=== PATIENT | male | born 1955 | race African-American/Black ===

== ENCOUNTER 2016-12-15 17:02 | Inpatient (IN) | payer MEDICAID ==
[~2016-12-15] VITALS: Ht 177.8 cm; Wt 73.5 kg
[2016-12-15 17:55] LABS: HEMOGLOBIN 14.5 g/dL (13.7-18.0)
[2016-12-15] MEDS ORDERED: METOPROLOL 1 MG/ML, 5ML ONE ×2 (17:58→18:32)
[2016-12-15] MEDS ORDERED: MORPHINE SULFATE 4 MG/ML, 1ML ONE ×2 (17:58→19:08)
[2016-12-15] MEDS ORDERED: ONDANSETRON 2MG/ML, 2ML ONE (17:59)
[2016-12-15] MEDS ORDERED: ASPIRIN 81 MG TABLET CHEW ONE (17:59)
[2016-12-15] MEDS ORDERED: SODIUM CHLORIDE FLUSH 10ML SYR IVF ONE (18:00)
[2016-12-15] MEDS ORDERED: ASPIRIN 81 MG TABLET CHEW PO ONE (18:00)
[2016-12-15] MEDS ORDERED: ONDANSETRON 2MG/ML, 2ML IVPush ONE (18:00)
[2016-12-15 18:04] LABS: ASPARTATE AMINO TRANSFERASE 53 U/L (15-37); BLOOD UREA NITROGEN 21 mg/dL (7-18)
[2016-12-15] MEDS: METOPROLOL 1 MG/ML, 5ML IVPush PRN ×2 (18:04→18:35)
[2016-12-15] MEDS: MORPHINE SULFATE 4 MG/ML, 1ML IVPush PRN ×2 (18:05→19:09)
[2016-12-15 18:27] LABS: IS PT STATUS REG ER OR PRE ER? YES
[2016-12-15] MEDS ORDERED: SODIUM CHLORIDE 0.9% 1,000ML IVBOLUS ONE (18:30)
[2016-12-15] MEDS ORDERED: POTASSIUM CHLORIDE 20 MEQ TAB.ER.PRT PO ONE (18:30)
[2016-12-15] MEDS ORDERED: POTASSIUM CHLORIDE 20 MEQ TAB.ER.PRT ONE (18:32)
[2016-12-15 19:20] LABS: DAU SCREEN DISCLAIMER
[2016-12-15] MEDS ORDERED: PROPYLTHIOURACIL 50 MG TABLET PO ONE (19:30)
[2016-12-15] MEDS ORDERED: HYDROCORTISONE 250 MG/2 ML IVPush ONE (19:30)
[2016-12-15] MEDS ORDERED: HYDROmorphone 1 MG/ML, 1ML IV ONE (19:30)
[2016-12-15] MEDS ORDERED: PROPRANOLOL 60 MG TABLET PO ONE (19:30)
[2016-12-15] MEDS ORDERED: MAGNESIUM SULFATE PMX 2GM/50ML 50 ML IV ONE (19:30)
[2016-12-15] MEDS ORDERED: TRAZODONE 50MG TABLET PO PRN (20:30)
[2016-12-15] MEDS ORDERED: POLYETHYLENE GLYCOL 17 GM PACKET PO PRN (20:30)
[2016-12-15] MEDS ORDERED: BISACODYL 10 MG SUPP PR PRN (20:30)
[2016-12-15] MEDS ORDERED: LABETALOL 5MG/ML, 20ML IV PRN (20:30)
[2016-12-15] MEDS ORDERED: DOCUSATE 100 MG CAPSULE PO PRN (20:30)
[2016-12-15] MEDS ORDERED: ACETAMINOPHEN 325 MG TABLET PO PRN (20:30)
[2016-12-15] MEDS ORDERED: ONDANSETRON ODT 4 MG PO PRN (20:30)
[2016-12-15 21:04] LABS: IS PT STATUS REG ER OR PRE ER? YES
[2016-12-15] MEDS ORDERED: ENOXAPARIN 40 MG/0.4 ML ONE (21:27)
[2016-12-15] MEDS: ENOXAPARIN 40 MG/0.4 ML SQ SCH (21:46)
[2016-12-15] MEDS: ATORVASTATIN 80 MG TABLET PO SCH (21:46)
[2016-12-15] MEDS ORDERED: NS + 20MEQ KCL 1,000 ML IV ONE (21:47)
[2016-12-15] MEDS: NS + 20MEQ KCL 1,000 ML IV SCH (21:50)
[2016-12-16 00:30] VITALS: BP 129/79
[2016-12-16] MEDS: POTASSIUM IODIDE ORAL.SOLN 1 GM/ML PO SCH ×5 (00:38→20:56)
[2016-12-16] MEDS: PROPYLTHIOURACIL 50 MG TABLET PO SCH ×7 (00:41→23:09)
[2016-12-16] MEDS: PROPRANOLOL 60 MG TABLET PO SCH ×4 (03:13→20:56)
[2016-12-16] MEDS: NS + 20MEQ KCL 1,000 ML IV SCH (03:15)
[2016-12-16 03:21] LABS: ASPARTATE AMINO TRANSFERASE 227 U/L (15-37); BLOOD UREA NITROGEN 15 mg/dL (7-18)
[2016-12-16 03:26] LABS: IS PT STATUS REG ER OR PRE ER? NO
[2016-12-16 04:43] LABS: HIV 1&2 ANTIBODY SCREEN Nonreactive (Nonreactive); HIV-1 p24 ANTIGEN Nonreactive (Nonreactive)
[2016-12-16 05:00] VITALS: BP 132/88
[2016-12-16] MEDS: SODIUM CHLORIDE 0.9% 1,000 ML IV SCH ×2 (05:40→18:41)
[2016-12-16] MEDS: ASPIRIN 325 MG TABLET EC PO SCH (06:09)
[2016-12-16] MEDS ORDERED: POTASSIUM CHLORIDE 20 MEQ, MAGNESIUM SULFATE 1 GM, THIAMINE 100 MG, FOLIC ACID 1 MG, MV... IV SCH (07:30)
[2016-12-16] MEDS ORDERED: THIAMINE 100 MG in SODIUM CHLORIDE 0.9% 50 ML IV ONE (08:00)
[2016-12-16] MEDS ORDERED: LORazepam 2 MG/ML, 1ML IVPush PRN (08:00)
[2016-12-16] MEDS: CHLORDIAZEPOXIDE 25 MG CAPSULE PO SCH ×3 (08:37→20:56)
[2016-12-16 09:53] LABS: HEPATITIS C VIRUS ANTIBODY Nonreactive (Nonreactive)
[2016-12-16] MEDS: ENOXAPARIN 40 MG/0.4 ML SQ SCH (20:55)
[2016-12-16] MEDS: ATORVASTATIN 80 MG TABLET PO SCH (20:56)
[2016-12-16] MEDS ORDERED: LABETALOL 5MG/ML, 20ML IV PRN (21:48)
[2016-12-16] MEDS ORDERED: FUROSEMIDE 20 MG/2 ML ONE (22:10)
[2016-12-16] MEDS ORDERED: FUROSEMIDE 20 MG/2 ML IV ONE (22:30)
[2016-12-17 00:15] LABS: IS PT STATUS REG ER OR PRE ER? NO
[2016-12-17] MEDS: SODIUM CHLORIDE 0.9% 1,000 ML IV SCH (00:40)
[2016-12-17] MEDS: PROPRANOLOL 60 MG TABLET PO SCH ×2 (03:06→08:57)
[2016-12-17] MEDS: PROPYLTHIOURACIL 50 MG TABLET PO SCH ×2 (03:07→06:25)
[2016-12-17 04:00] VITALS: BP 156/103
[2016-12-17] MEDS: POTASSIUM IODIDE ORAL.SOLN 1 GM/ML PO SCH (06:23)
[2016-12-17] MEDS: ASPIRIN 325 MG TABLET EC PO SCH (06:23)
[2016-12-17] MEDS: CHLORDIAZEPOXIDE 25 MG CAPSULE PO SCH (08:57)
[2016-12-17] MEDS ORDERED: FLUTICASONE NASAL SPRAY 16GM NAS SCH (09:00)
== END 2016-12-17 09:25 | disposition left against medical advice (07) | DRG 643 ==
LOC: ED 17:42 → EDIP 20:08 → CCU 23:57
PROVIDERS: ADMIT Internal Medicine; ATTEND Internal Medicine
DX: E05.01 Thyrotoxicosis with diffuse goiter with thyrotoxic crisis or storm (principal); J96.90 Respiratory failure, unspecified, unspecified whether with hypoxia or hypercapnia; I48.92 Unspecified atrial flutter; E87.2 Acidosis; J81.1 Chronic pulmonary edema; I24.8 Other forms of acute ischemic heart disease; I10 Essential (primary) hypertension; E87.6 Hypokalemia; E83.42 Hypomagnesemia; F10.220 Alcohol dependence with intoxication, uncomplicated; F11.10 Opioid abuse, uncomplicated; J44.9 Chronic obstructive pulmonary disease, unspecified; M19.90 Unspecified osteoarthritis, unspecified site; K58.9 Irritable bowel syndrome, unspecified; G89.29 Other chronic pain; M54.9 Dorsalgia, unspecified; F17.290 Nicotine dependence, other tobacco product, uncomplicated; I25.2 Old myocardial infarction; Z82.49 Family history of ischemic heart disease and other diseases of the circulatory system; Z91.19 Patient's noncompliance with other medical treatment and regimen; Z90.49 Acquired absence of other specified parts of digestive tract; Z88.0 Allergy status to penicillin; Z84.89 Family history of other specified conditions
CPT/HCPCS: 36415; 71010; 76536; 80053; 80074; 80307; 83605; 83735; 83880; 84100; 84132; 84436; 84439; 84443; 84481; 84484; 85025; 85379; 85610; 85730; 86703; 87081; 87899; 93005; 96361; 96365; 96375; J1650; J1720; J2405; J3411; J3475; J3480; G0435; J1940; J2060; J7030

== ENCOUNTER 2017-05-28 23:30 | Inpatient (IN) | payer MEDICAID ==
[~2017-05-28] VITALS: Ht 177.8 cm; Wt 79.7 kg
[2017-05-28] MEDS: NITROGLYCERIN SINGLE TAB 0.4 MG SL PRN ×3 (23:38→23:50)
[2017-05-28] MEDS ORDERED: [UNRECOGNIZED DRUG - REMARK] (23:40)
[2017-05-28] MEDS ORDERED: ASPIRIN 81 MG TABLET CHEW ONE (23:53)
[2017-05-28 23:54] LABS: HEMATOCRIT 37.9 % (39.2-51.8); WHITE BLOOD COUNT 6.1 x10^3/uL (3.4-10)
[2017-05-28] MEDS ORDERED: MORPHINE SULFATE 4 MG/ML, 1ML ONE (23:55)
[2017-05-28] MEDS ORDERED: ONDANSETRON 2MG/ML, 2ML ONE (23:55)
[2017-05-29] MEDS ORDERED: ASPIRIN 81 MG TABLET CHEW PO ONE
[2017-05-29] MEDS ORDERED: MORPHINE SULFATE 4 MG/ML, 1ML IVPush PRN
[2017-05-29] MEDS ORDERED: METOPROLOL 1 MG/ML, 5ML IVPush PRN
[2017-05-29] MEDS ORDERED: ONDANSETRON 2MG/ML, 2ML IVPush ONE
[2017-05-29] MEDS ORDERED: SODIUM CHLORIDE 0.9% 1,000ML IVBOLUS ONE
[2017-05-29 00:04] VITALS: BP 133/93
[2017-05-29 00:06] LABS: BLOOD UREA NITROGEN 17 mg/dL (7-18)
[2017-05-29] MEDS ORDERED: METO25TA35 PO (00:17)
[2017-05-29 00:34] LABS: ASPARTATE AMINO TRANSFERASE 52 U/L (15-37)
[2017-05-29 00:46] LABS: DAU SCREEN DISCLAIMER
[2017-05-29 00:50] LABS: IS PT STATUS REG ER OR PRE ER? YES
[2017-05-29] MEDS ORDERED: HEPARIN 5,000 UNITS/ML, 1ML SQ SCH (01:00)
[2017-05-29] MEDS ORDERED: ONDANSETRON 2MG/ML, 2ML IVPush PRN (01:00)
[2017-05-29] MEDS ORDERED: LORazepam 2 MG/ML, 1ML ONE (01:00)
[2017-05-29] MEDS ORDERED: BISACODYL 10 MG SUPP PR PRN (01:00)
[2017-05-29] MEDS ORDERED: POLYETHYLENE GLYCOL 17 GM PACKET PO PRN (01:00)
[2017-05-29] MEDS ORDERED: NICOTINE 14MG/24 HR PATCH.TD24 TD SCH (01:00)
[2017-05-29] MEDS ORDERED: morphine SULFATE 10 MG/ML, 1ML IVPush PRN (01:00)
[2017-05-29] MEDS ORDERED: MAGNESIUM SULFATE PMX 4GM/100M 100 ML IV ONE (01:00)
[2017-05-29] MEDS ORDERED: ACETAMINOPHEN 325 MG TABLET PO PRN (01:00)
[2017-05-29] MEDS ORDERED: NITROGLYCERIN 0.4 MG BOTTLE (25 TABS) SL PRN (01:00)
[2017-05-29] MEDS ORDERED: LORazepam 2 MG/ML, 1ML IVPush ONE (01:30)
[2017-05-29] MEDS ORDERED: OMNIPAQUE 350 MG/ML, 100ML BOTTLE ONE (01:30)
[2017-05-29] MEDS ORDERED: ASPIRIN 325 MG TABLET EC PO SCH (06:00)
[2017-05-29] MEDS ORDERED: SENNA/DOCUSATE TABLET PO SCH (09:00)
[2017-05-29] MEDS ORDERED: METOPROLOL TARTRATE 25 MG TABLET PO SCH (09:00)
[2017-05-29] MEDS ORDERED: SODIUM CHLORIDE FLUSH 10ML SYR IVF SCH (09:00)
== END 2017-05-29 05:12 | disposition left against medical advice (07) | DRG 281 ==
LOC: ED 05-29 01:18 → 5SO 05-29 01:45
PROVIDERS: ADMIT Internal Medicine; ATTEND Internal Medicine
DX: I21.3 ST elevation (STEMI) myocardial infarction of unspecified site (principal); D68.69 Other thrombophilia; E87.2 Acidosis; D69.6 Thrombocytopenia, unspecified; E44.1 Mild protein-calorie malnutrition; I48.92 Unspecified atrial flutter; E83.42 Hypomagnesemia; D50.9 Iron deficiency anemia, unspecified; E78.5 Hyperlipidemia, unspecified; F17.210 Nicotine dependence, cigarettes, uncomplicated; F41.1 Generalized anxiety disorder; F43.10 Post-traumatic stress disorder, unspecified; G89.29 Other chronic pain; I10 Essential (primary) hypertension; I25.10 Atherosclerotic heart disease of native coronary artery without angina pectoris; I44.7 Left bundle-branch block, unspecified; I48.2 Chronic atrial fibrillation; J44.9 Chronic obstructive pulmonary disease, unspecified; K58.9 Irritable bowel syndrome, unspecified; K70.9 Alcoholic liver disease, unspecified; Z79.01 Long term (current) use of anticoagulants; Z79.82 Long term (current) use of aspirin; M54.9 Dorsalgia, unspecified
CPT/HCPCS: 36415; 71010; 71275; 80053; 80307; 82607; 82746; 83735; 83880; 84439; 84443; 84484; 85025; 85379; 85610; 93005; 96374; 96375; J2405; Q9967; G0479; J2060; J7030

== ENCOUNTER 2018-06-05 02:10 | Inpatient (IN) | payer OTHER ==
[~2018-06-05] VITALS: Ht 177.8 cm; Wt 72.2 kg
[~2018-06-05 02:10] MED LIST: ASPI-515 PO; METH10TA6 PO; METO25TA35 PO; METO50TA82 PO; [UNRECOGNIZED DRUG - REMARK]
[2018-06-05] MEDS ORDERED: ASPIRIN 81 MG TABLET CHEW PO ONE (03:00)
[2018-06-05] MEDS ORDERED: ASPIRIN 81 MG TABLET CHEW ONE (03:06)
[2018-06-05 03:24] LABS: ALANINE AMINOTRANSFERASE 30 U/L (12-78); ALBUMIN 3.2 g/dL (3.4-5.0); ANION GAP 12 mmol/L (5-15); CALCIUM 8.1 mg/dL (8.5-10.1); CHLORIDE 102 mmol/L (98-107); CREATININE 1.21 mg/dL (0.7-1.3)
[2018-06-05 03:28] LABS: ALKALINE PHOSPHATASE 104 U/L (45-117); BILIRUBIN,TOTAL 0.1 mg/dL (0.2-1.0); TOTAL PROTEIN 7.4 g/dL (6.4-8.2)
[2018-06-05 03:31] LABS: TROPONIN I 0.162 ng/mL (0.000-0.045)
[2018-06-05 03:37] LABS: BASOPHILS # (AUTO) 0.01 x10^3/uL (0-0.1); BASOPHILS % (AUTO) 0 % (0-1); EOSINOPHILS # (AUTO) 0.01 x10^3/uL (0-0.4); EOSINOPHILS % (AUTO) 0 % (1-7); LYMPHOCYTES % (AUTO) 46 % (22-44); MD NO; MEAN CORPUSCULAR HEMOGLOBIN 35.9 pg (27.5-34.5); MEAN CORPUSCULAR HGB CONC 34.8 g/dL (33.2-36.2); MEAN CORPUSCULAR VOLUME 103.2 fL (81-97); MEAN PLATELET VOLUME 9.1 fL (7.4-10.4); MONOCYTES # (AUTO) 0.82 x10^3/uL (0.2-0.8); MONOCYTES % (AUTO) 16 % (2-9); NEUTROPHILS # (AUTO) 1.93 x10^3/uL (1.8-6.8); NEUTROPHILS % (AUTO) 37 % (42-75); PLATELET COUNT 103 x10^3/uL (130-400); RED BLOOD COUNT 3.41 x10^6/uL (4.38-5.82); RED CELL DISTRIBUTION WIDTH 15.4 % (9.4-14.8)
[2018-06-05] MEDS ORDERED: morphine SULFATE 10 MG/ML, 1ML IVPush PRN (05:00)
[2018-06-05] MEDS ORDERED: POLYETHYLENE GLYCOL 17 GM PACKET PO PRN (05:00)
[2018-06-05] MEDS ORDERED: ONDANSETRON 2MG/ML, 2ML IVPush PRN (05:00)
[2018-06-05] MEDS ORDERED: POTASSIUM CHLORIDE 10% 40 MEQ/30 ML UDC PO ONE (05:00)
[2018-06-05] MEDS: SODIUM CHLORIDE 0.9% 1,000 ML IV SCH ×2 (06:00→18:42)
[2018-06-05 06:22] VITALS: BP 125/83
[2018-06-05] MEDS: METOPROLOL TARTRATE 50 MG TABLET PO SCH ×3 (06:26→21:19)
[2018-06-05] MEDS ORDERED: HEPARIN 25,000 UNITS/500ML PMX 500 ML IV PRN (06:30)
[2018-06-05] MEDS ORDERED: HEPARIN 5,000 UNITS/ML, 1ML IV ONE (06:30)
[2018-06-05] MEDS ORDERED: HEPARIN 5,000 UNITS/ML, 1ML IV PRN (06:30)
[2018-06-05] MEDS ORDERED: METOPROLOL 1 MG/ML, 5ML IVPush ONE (07:00)
[2018-06-05] MEDS: ASPIRIN 325 MG TABLET EC PO SCH (07:29)
[2018-06-05] MEDS ORDERED: SODIUM CHLORIDE 0.9% 1,000 ML IV ONE (07:47)
[2018-06-05] MEDS ORDERED: MIDAZOLAM 1 MG/ML, 5ML ONE (07:52)
[2018-06-05] MEDS ORDERED: FENTANYL PF 100 MCG/2ML ONE (07:52)
[2018-06-05] MEDS ORDERED: TICAGRELOR 90 MG TABLET ONE (07:52)
[2018-06-05] MEDS ORDERED: NITROGLYCERIN 5 MG/ML, 10ML ONE (07:53)
[2018-06-05] MEDS ORDERED: HEPARIN 1,000 UNITS/ML, 10ML ONE (07:53)
[2018-06-05] MEDS ORDERED: LIDOCAINE-MPF 2%, 2ML ONE ×3 (07:53→08:29)
[2018-06-05] MEDS ORDERED: VERAPAMIL 2.5 MG/ML, 2ML ONE (07:53)
[2018-06-05] MEDS ORDERED: BIVALIRUDIN 250 MG ONE (07:53)
[2018-06-05 13:08] VITALS: BP 120/69
[2018-06-05 14:11] LABS: TROPONIN I 0.194 ng/mL (0.000-0.045)
[2018-06-05 18:57] VITALS: BP 154/93
[2018-06-05] MEDS: KETOROLAC 30 MG/1 ML IVPush PRN (19:32)
[2018-06-06 02:00] VITALS: BP 151/83
[2018-06-06 05:52] VITALS: BP 150/80
[2018-06-06] MEDS: METOPROLOL TARTRATE 50 MG TABLET PO SCH ×2 (05:53→16:21)
[2018-06-06 07:17] VITALS: BP 181/96
[2018-06-06] MEDS: SODIUM CHLORIDE 0.9% 1,000 ML IV SCH (07:22)
[2018-06-06] MEDS: ASPIRIN 325 MG TABLET EC PO SCH (08:06)
[2018-06-06] MEDS: KETOROLAC 30 MG/1 ML IVPush PRN (08:11)
[2018-06-06 08:30] VITALS: BP 162/96
[2018-06-06] MEDS: POTASSIUM CHLORIDE 20 MEQ TAB.ER.PRT PO SCH ×2 (11:31→16:18)
[2018-06-06 12:22] VITALS: BP 164/99
[2018-06-06 12:24] VITALS: BP 164/98
[2018-06-06] MEDS ORDERED: LISI-170 PO (15:28)
[2018-06-07] MEDS ORDERED: LISINOPRIL 20 MG TABLET PO SCH (15:45)
== END 2018-06-06 17:11 | disposition home or self-care (01) | DRG 286 ==
LOC: ED 03:36 → EDIP 04:18 → SUATTDRO 04:38 → 5SO 05:53
PROVIDERS: ADMIT Hospitalist; ATTEND Hospitalist
PROC: 4A023N7 Measurement of Cardiac Sampling and Pressure, Left Heart, Percutaneous Approach (ICD-10-PCS; principal; 2018-06-05)
PROC: 4A023N7 Measurement of Cardiac Sampling and Pressure, Left Heart, Percutaneous Approach (ICD-10-PCS; 2018-06-05)
PROC: B2151ZZ Fluoroscopy of Left Heart using Low Osmolar Contrast (ICD-10-PCS; 2018-06-05)
DX: I25.10 Atherosclerotic heart disease of native coronary artery without angina pectoris (principal); E43 Unspecified severe protein-calorie malnutrition; I48.92 Unspecified atrial flutter; Z68.22 Body mass index [BMI] 22.0-22.9, adult; D64.9 Anemia, unspecified; E03.9 Hypothyroidism, unspecified; E87.6 Hypokalemia; F10.220 Alcohol dependence with intoxication, uncomplicated; F17.210 Nicotine dependence, cigarettes, uncomplicated; F43.10 Post-traumatic stress disorder, unspecified; I10 Essential (primary) hypertension; I48.0 Paroxysmal atrial fibrillation; J44.9 Chronic obstructive pulmonary disease, unspecified; K58.9 Irritable bowel syndrome, unspecified; K70.9 Alcoholic liver disease, unspecified; Y90.8 Blood alcohol level of 240 mg/100 ml or more; Z88.0 Allergy status to penicillin
CPT/HCPCS: 36415; 71045; 78582; 80053; 80307; 84484; 85025; 85520; 93005; 93458; 99156; 99291; C1760; C1769; C1894; G0378; J0583; J1644; J1885; J2250; J3010; J3490; A9540; A9558; C9898; J2270; J7030; Q9967

== ENCOUNTER 2019-08-03 09:14 | Inpatient (IN) | payer MEDICAID, OTHER ==
[~2019-08-03] VITALS: Ht 177.8 cm; Wt 72.8 kg
[~2019-08-03 09:14] MED LIST changes: +LISI-170 PO
--- NOTE | 2019-08-03 09:52 | NUR ---
PT AMBULATED TO ER ROOM WITH COMPLAINTS OF CHEST PAIN. PT STATES CHEST PAIN BEGAN THIS MORNING AROUND 0600 AND WOKE HIM FROM HIS SLEEP. PT STATED SHORTNESS OF BREATH IS ASSOICATED WITH THE CHEST PAIN WITH RADIATION TO THE RIGHT ARM. PT ALSO EXPRESS THAT HIS RIGHT ARM NUMBNESS. PT DENIES CURRENT NUMBNESS.
[2019-08-03] MEDS ORDERED: NITROGLYCERIN SINGLE TAB 0.4 MG SL PRN ×2 (10:00→13:00)
[2019-08-03] MEDS ORDERED: ASPIRIN 81 MG TABLET CHEW PO ONE (10:00)
[2019-08-03] MEDS ORDERED: SODIUM CHLORIDE FLUSH 10ML SYR IVF ONE (10:00)
[2019-08-03] MEDS ORDERED: NITROGLYCERIN SINGLE TAB 0.4 MG SL ONE (10:05)
[2019-08-03] MEDS ORDERED: ASPIRIN 81 MG TABLET CHEW ONE (10:05)
--- NOTE | 2019-08-03 10:09 | NUR ---
PT MED NOTED FOR CP. NTG SL X 1 CP 03/11
[2019-08-03 10:18] LABS: MD YES; MEAN CORPUSCULAR HEMOGLOBIN 36.5 pg (27.5-34.5); MEAN CORPUSCULAR HGB CONC 34.9 g/dL (33.2-36.2); MEAN CORPUSCULAR VOLUME 104.7 fL (81-97); MEAN PLATELET VOLUME 8.3 fL (7.4-10.4); PLATELET COUNT 125 x10^3/uL (130-400); RED BLOOD COUNT 3.55 x10^6/uL (4.38-5.82); RED CELL DISTRIBUTION WIDTH 15.4 % (9.4-14.8)
[2019-08-03 10:24] LABS: ALANINE AMINOTRANSFERASE 46 U/L (12-78); ALBUMIN 3.8 g/dL (3.4-5.0); ANION GAP 15 mmol/L (5-15); CALCIUM 9.4 mg/dL (8.5-10.1); CHLORIDE 97 mmol/L (98-107); CREATININE 0.92 mg/dL (0.7-1.3)
[2019-08-03 10:29] LABS: ALKALINE PHOSPHATASE 84 U/L (45-117); BILIRUBIN,TOTAL 0.7 mg/dL (0.2-1.0); TOTAL PROTEIN 8.5 g/dL (6.4-8.2)
[2019-08-03 10:32] LABS: TROPONIN I 0.211 ng/mL (0.000-0.045)
[2019-08-03 10:41] LABS: <PLATELET ESTIMATE> DECREASED; <PLT MORPHOLOGY> NORMAL PLT MORPH; ANISOCYTOSIS 1+; BAND#(MANUAL) 0.08 x10^3/uL; BANDS%(MANUAL) 2 % (0-7); EOS#(MANUAL) 0.04 x10^3/uL (0.0-0.4); EOS% (MANUAL) 1 % (1-7); LYMPH#(MANUAL) 1.18 x10^3/uL (1-3.4); LYMPHS% (MANUAL) 28 % (22-44); MONOS#(MANUAL) 0.29 x10^3/uL (0.3-2.7); MONOS% (MANUAL) 7 % (2-9); SEGS% (MANUAL) 62 % (42-75)
--- NOTE | 2019-08-03 10:50 | NUR ---
TROPONIN ELEVATED AT 0.[address] HASSAN. PLAN FOR CARD CONSULT AND ADMISSION REVIEWED. PT AWARE AND QUESTIONS ANSWERED. NO RELIEF OF CP NOTED WITH NTG. BP DROP OF 30PTS AFTER FIRST DOSE.
[2019-08-03] MEDS ORDERED: HEPARIN 25,000 UNITS/500ML PMX 500 ML ONE (10:55)
[2019-08-03] MEDS ORDERED: HEPARIN 5,000 UNITS/ML, 1ML ONE (10:55)
[2019-08-03] MEDS ORDERED: HEPARIN 5,000 UNITS/ML, 1ML IV ONE (11:00)
[2019-08-03] MEDS ORDERED: HEPARIN 5,000 UNITS/ML, 1ML IV PRN (11:00)
[2019-08-03] MEDS: HEPARIN 25,000 UNITS/500ML PMX 500 ML IV PRN (11:30)
[2019-08-03] MEDS ORDERED: SODIUM CHLORIDE FLUSH 10ML SYR IVF PRN (11:30)
--- NOTE | 2019-08-03 11:34 | NUR ---
DR. FENG AT BEDSIDE DISCUSSING POC. POSSIBLE CARDIAC CATH TODAY. PT AGREEABLE. HEPARIN GGT STARTED PER ORDERS/PROTOCOL.
[2019-08-03] MEDS ORDERED: NITROGLYCERIN 0.4 MG/SPRAY SL PRN (13:00)
[2019-08-03 13:24] VITALS: BP 162/105
[2019-08-03] MEDS: MORPHINE SULFATE 4 MG/ML, 1ML IV PRN ×3 (13:56→20:54)
[2019-08-03 14:00] VITALS: BP 162/105
[2019-08-03] MEDS: SODIUM CHLORIDE 0.9% 1,000 ML IV SCH (14:07)
[2019-08-03] MEDS: METOPROLOL TARTRATE 25 MG TABLET PO SCH (18:03)
[2019-08-03 19:54] VITALS: BP 145/87
[2019-08-03] MEDS: ATORVASTATIN 80 MG TABLET PO SCH (20:52)
[2019-08-03] MEDS ORDERED: OMNIPAQUE 350 MG/ML, 100ML BOTTLE ONE (22:43)
[2019-08-03 23:39] LABS: TROPONIN I 0.214 ng/mL (0.000-0.045)
[2019-08-04 00:23] VITALS: BP 146/86
[2019-08-04] MEDS ORDERED: HEPARIN 5,000 UNITS/ML, 1ML ONE (00:49)
[2019-08-04] MEDS: SODIUM CHLORIDE 0.9% 1,000 ML IV SCH ×3 (00:55→23:18)
[2019-08-04] MEDS: HEPARIN 5,000 UNITS/ML, 1ML IV PRN (00:56)
[2019-08-04] MEDS: MORPHINE SULFATE 4 MG/ML, 1ML IV PRN ×6 (00:57→22:17)
[2019-08-04 01:00] VITALS: BP 132/87
[2019-08-04 05:55] LABS: CHOL/HDL RATIO 2.8; LDL/HDL RATIO 1.5 (0.5-3.0)
[2019-08-04] MEDS: ASPIRIN 325 MG TABLET EC PO SCH (06:37)
[2019-08-04] MEDS: METOPROLOL TARTRATE 25 MG TABLET PO SCH (06:37)
[2019-08-04 09:27] VITALS: BP 165/101
[2019-08-04] MEDS ORDERED: METOPROLOL TARTRATE 25 MG TABLET PO ONE (10:00)
[2019-08-04] MEDS ORDERED: AMLODIPINE 5 MG TABLET PO SCH (10:00)
[2019-08-04] MEDS ORDERED: ALBUTEROL SULFATE 2.5 MG/3 ML ONE (11:49)
[2019-08-04] MEDS ORDERED: ALBUTEROL SULFATE 2.5 MG/3 ML NPPB PRN (12:00)
[2019-08-04] MEDS: HEPARIN 25,000 UNITS/500ML PMX 500 ML IV PRN (12:08)
[2019-08-04 14:28] VITALS: BP 166/99
[2019-08-04] MEDS: METOPROLOL TARTRATE 50 MG TABLET PO SCH (18:07)
[2019-08-04 20:07] VITALS: BP 150/87
[2019-08-04] MEDS: ATORVASTATIN 80 MG TABLET PO SCH (22:16)
[2019-08-05 01:39] VITALS: BP 160/93
[2019-08-05] MEDS: ASPIRIN 325 MG TABLET EC PO SCH (05:34)
[2019-08-05] MEDS: METOPROLOL TARTRATE 50 MG TABLET PO SCH (05:34)
[2019-08-05] MEDS: MORPHINE SULFATE 4 MG/ML, 1ML IV PRN (05:36)
[2019-08-05 05:41] LABS: CHLORIDE 98 mmol/L (98-107)
[2019-08-05 05:52] LABS: ALANINE AMINOTRANSFERASE 90 U/L (12-78); ALBUMIN 3.7 g/dL (3.4-5.0); ALKALINE PHOSPHATASE 82 U/L (45-117); ANION GAP 9 mmol/L (5-15); BILIRUBIN,TOTAL 0.9 mg/dL (0.2-1.0); CALCIUM 8.4 mg/dL (8.5-10.1); CREATININE 0.75 mg/dL (0.7-1.3)
[2019-08-05] MEDS: HEPARIN 5,000 UNITS/ML, 1ML IV PRN (06:18)
[2019-08-05] MEDS ORDERED: FENTANYL PF 100 MCG/2ML ONE ×2 (07:46)
[2019-08-05] MEDS ORDERED: MIDAZOLAM 1 MG/ML, 5ML ONE ×2 (07:46)
[2019-08-05] MEDS ORDERED: GADOTERATE 7.5 MMOL/15 ML SYR ONE (08:30)
[2019-08-05] MEDS ORDERED: AMLODIPINE 10 MG TAB PO SCH (10:00)
[2019-08-05] MEDS ORDERED: SODIUM CHLORIDE 0.9% 1,000 ML IV SCH (10:00)
[2019-08-05] MEDS ORDERED: LOSARTAN 50MG TABLET PO SCH (10:30)
[2019-08-05] MEDS ORDERED: ATORVASTATIN 40 MG TABLET PO SCH (21:00)
== END 2019-08-05 11:36 | disposition left against medical advice (07) | DRG 281 ==
LOC: ED 11:27 → EDIP 11:28 → ED 11:39 → 5SO 13:24
PROVIDERS: ADMIT Internal Medicine; ATTEND Internal Medicine
DX: I21.4 Non-ST elevation (NSTEMI) myocardial infarction (principal); E87.1 Hypo-osmolality and hyponatremia; I48.92 Unspecified atrial flutter; I48.0 Paroxysmal atrial fibrillation; J44.9 Chronic obstructive pulmonary disease, unspecified; D69.6 Thrombocytopenia, unspecified; E03.9 Hypothyroidism, unspecified; E78.5 Hyperlipidemia, unspecified; F17.210 Nicotine dependence, cigarettes, uncomplicated; F41.9 Anxiety disorder, unspecified; I10 Essential (primary) hypertension; Z82.49 Family history of ischemic heart disease and other diseases of the circulatory system; Z87.01 Personal history of pneumonia (recurrent); Z90.49 Acquired absence of other specified parts of digestive tract; M54.9 Dorsalgia, unspecified; G89.29 Other chronic pain; R91.1 Solitary pulmonary nodule
CPT/HCPCS: 36415; 70450; 70553; 71045; 71275; 80053; 80061; 83690; 84443; 84484; 85025; 85520; 93005; 93306; 96374; 99156; 99157; 99285; G0378; J1644; J2250; J3010; Q9967; A9575; J2270; J7030